=== PATIENT | male | born 1935 | race African-American/Black ===

== ENCOUNTER 2019-11-25 14:01 | Inpatient (IN) | payer MEDICARE, OTHER ==
[~2019-11-25] VITALS: Ht 182.9 cm; Wt 70.8 kg
--- NOTE | 2019-11-25 15:10 | NUR ---
[facility]. TO ER BED 7. AAOX4. NOT IN RESPS DISTRESS, BREATHING EVEN AND UNLABORED. CAME IN FOR A WORSENING WOUND ON HIS LEFT FOOT,. 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 PT WAS THEN REPORTED TO HAVE MAGGOTS NOTED THIS MORNING. PTS WOUND WAS NOTED DRAINING WITH PURULENT DISCHARGE W/ FOUL ODOR. MD WAS AT THE BEDSIDE FOR EVAL. ORDERS RECEIVED, NOTED AND CARRIED OUT. IV LINE OBTAINED ON L AC 18G, BLOOD DRAWN AND GIVEN TO WET PROCESS MILLER AT BEDSIDE.
[2019-11-25 15:19] LABS: BASOPHILS % (AUTO) 0.3 % (0.0-2.0); EOSINOPHILS % (AUTO) 1.9 % (0.0-6.0); HEMATOCRIT 34 % (39-51); HEMOGLOBIN 10.7 g/dL (13.5-17.5); LYMPHOCYTES # (AUTO) 1.3 /CMM (0.8-4.8); LYMPHOCYTES % (AUTO) 14.9 % (20.0-44.0); MEAN CORPUSCULAR HGB CONC 32 g/dl (31.0-36.0); MEAN CORPUSCULAR VOLUME 82 fL (80-96); MONOCYTES # (AUTO) 0.4 /CMM (0.1-1.30); MONOCYTES % (AUTO) 4.5 % (2.0-12.0); NEUTROPHILS % (AUTO) 78.4 % (43.0-81.0); PLATELET COUNT (AUTO) 344 /CMM (150-450); RED BLOOD CELL COUNT(AUTO) 4.11 MIL/uL (4.5-6.0)
--- NOTE | 2019-11-25 15:20 | NUR ---
XRAY AT BEDSIDE
--- NOTE | 2019-11-25 15:35 | NUR ---
pt wound cleaned by EMT . flushed with NS. noted maggots when flushing
[2019-11-25 15:45] LABS: CALCIUM, SERUM 8.8 mg/dL (8.5-10.1); CARBON DIOXIDE 28 mmol/L (21-32); CHLORIDE 100 mmol/L (98-107); CREATININE 0.8 mg/dL (0.6-1.3); GLUCOSE 224 mg/dL (74-106); POTASSIUM 4.5 mmol/L (3.5-5.1); SODIUM SERUM 135 mmol/L (136-145); UREA NITROGEN, BLOOD 13 mg/dL (7-18)
[2019-11-25 15:49] LABS: ALANINE AMINOTRANSFERASE 10 U/L (12-78); ALBUMIN 3.1 g/dL (3.4-5.0); ALKALINE PHOSPHATASE 76 U/L (46-116); ASPARTATE AMINOTRANSFERASE 12 U/L (15-37); BILIRUBIN,DIRECT 0.1 mg/dL (0.0-0.2); BILIRUBIN,TOTAL 0.3 mg/dL (0.2-1.0); TOTAL PROTEIN, SERUM 7.7 g/dL (6.4-8.2)
[2019-11-25] MEDS ORDERED: IBUP-1953 PO (15:59)
[2019-11-25] MEDS ORDERED: HYDR-4384 PO (15:59)
[2019-11-25] MEDS ORDERED: NA P133E RC (15:59)
[2019-11-25] MEDS ORDERED: DOCU-141 PO (15:59)
[2019-11-25] MEDS ORDERED: CIPR500T5 PO (15:59)
[2019-11-25] MEDS ORDERED: SENN-261 PO (15:59)
[2019-11-25] MEDS ORDERED: INSU100I26 SQ (15:59)
[2019-11-25] MEDS ORDERED: ATOR20TA PO (15:59)
[2019-11-25] MEDS ORDERED: INSU100C10 SQ (15:59)
[2019-11-25] MEDS ORDERED: MAGN296S72 PO (15:59)
[2019-11-25] MEDS ORDERED: CLOP75TA15 PO (15:59)
[2019-11-25] MEDS ORDERED: GABA300C PO (15:59)
[2019-11-25] MEDS ORDERED: BISA10SU61 RC (15:59)
[2019-11-25] MEDS ORDERED: ASPI-605 PO (15:59)
[2019-11-25] MEDS ORDERED: VANCOMYCIN 1 GM in IV D5W 250 ML IV ONE (16:00)
[2019-11-25] MEDS ORDERED: MEROPENEM 1,000 MG in IV NS 0.9% 100 ML IV ONE (16:00)
[2019-11-25] MEDS ORDERED: MEROPENEM 1 G VIAL IV ONE (17:21)
--- NOTE | 2019-11-25 18:17 | NUR ---
REPORT GIVEN TO BHANU YARBROUGH FOR GELA.
[2019-11-25] MEDS ORDERED: MAGNESIUM CITRATE 296 ML BOTTLE PO PRN ×2 (18:30→20:03)
[2019-11-25] MEDS ORDERED: IBUPROFEN 400 MG TABLET PO PRN (18:30)
[2019-11-25] MEDS ORDERED: BISACODYL SUPP (10 MG) 10 MG/SUPP.RECT SUPP.RECT RC PRN (18:30)
[2019-11-25] MEDS ORDERED: NA PHOS,M-B/NA PHOS,DI-BA 1 EA ENEMA RC PRN (18:30)
--- NOTE | 2019-11-25 18:39 | NUR ---
pt transported to unit on [facility] with emt and rn at bedside. using alcs protocol. nad noted during transport.
--- NOTE | 2019-11-25 19:02 | NUR ---
MS/RN NOTES RECEIVED REPORT FROM ELBERT TORRE RN. PATIENT CAME FROM [facility] COMPLAINED OF MAGOT IN THE WOUND PER [facility] PERSONNEL. PATIENT IN ROOM AIR SATURATION OF 99%. INITIATED VITAL SIGN BP 113/80 RR 20 TEMP 97.8 HR 93. WILL ENDORSED TO WATERPROOFER FOR ASSESSMENT AND CARE.
[2019-11-25 20:00] VITALS: BP 113/80
--- NOTE | 2019-11-25 20:00 | NUR ---
RN OPENING NOTE PT RECEIVED IN STABLE CONDITION. PT REFUSES TO PROVIDE ANY INFORMATION AND HE REFUSES TO BE TOUCHED.HE STATED "GO OUT OF THE ROOM , I DO NOT WANT TO TALK TO YOU, I WANT A MALE NURSE, CLOSE THE DOOR, DO NOT COME BACK" CHARGE NURSE GERALD MADE AWARE.
--- NOTE | 2019-11-25 21:18 | NUR ---
MS RN NOTE PAGED MD CHACON REGARDING PT REFUSING ALL CARE. REFUSING TO ANSWER THE ADMISSION QUESTIONS. STATES "I WILL DO TOMORROW MORNING, LEAVE ME ALONE AT THIS TIME. NURSE CLARISSA UNABLE TO DO WOUND ASSESSMENT AND ADMISSION QUESTIONNAIRES. WAITING FOR MD TO CALL BACK.
[2019-11-25] MEDS ORDERED: ACETAMINOPHEN 325 MG TABLET PO PRN (22:00)
[2019-11-25] MEDS ORDERED: MEROPENEM 1 G in IV NS 0.9% 100 ML IV SCH (22:00)
[2019-11-25] MEDS ORDERED: ENOXAPARIN SODIUM 40 MG/0.4 ML DISP.SYRIN SQ SCH (22:00)
[2019-11-25] MEDS ORDERED: MORPHINE SULFATE INJ 2 MG/ML DISP.SYRIN IM PRN (22:00)
[2019-11-25] MEDS: ATORVASTATIN 10 MG TABLET PO SCH (22:35)
[2019-11-25] MEDS: SENNOSIDES 8.6 MG TABLET PO SCH (22:36)
[2019-11-25] MEDS: INSULIN GLARGINE, 100 UNIT/ML CARTRIDGE SQ SCH (22:51)
[2019-11-25] MEDS: IV NS 0.9% 1,000 ML IV PRN (23:16)
[2019-11-25] MEDS: HYDROCODONE/APAP 5/325MG TABLET PO PRN (23:21)
--- NOTE | 2019-11-26 04:00 | NUR ---
RN NOTE PT REFUSED 4'O CLOCK VITALS.
[2019-11-26] MEDS ORDERED: MEROPENEM 1 G in IV NS 0.9% 100 ML IV ONE (05:30)
[2019-11-26] MEDS ORDERED: VANCOMYCIN 1 GM in IV D5W 250ml IV ONE (06:00)
[2019-11-26] MEDS ORDERED: VANCOMYCIN 1 GM VIAL ONE (06:45)
[2019-11-26] MEDS ORDERED: MEROPENEM 1 G VIAL IV ONE (06:45)
[2019-11-26 06:57] LABS: BASOPHILS % (AUTO) 0.6 % (0.0-2.0); EOSINOPHILS % (AUTO) 5.2 % (0.0-6.0); HEMATOCRIT 31 % (39-51); HEMOGLOBIN 9.9 g/dL (13.5-17.5); LYMPHOCYTES # (AUTO) 1.8 /CMM (0.8-4.8); LYMPHOCYTES % (AUTO) 28.6 % (20.0-44.0); MEAN CORPUSCULAR HGB CONC 32 g/dl (31.0-36.0); MEAN CORPUSCULAR VOLUME 81 fL (80-96); MONOCYTES # (AUTO) 0.5 /CMM (0.1-1.30); MONOCYTES % (AUTO) 7.3 % (2.0-12.0); NEUTROPHILS # (AUTO) 3.6 /CMM (1.8-8.9); NEUTROPHILS % (AUTO) 58.3 % (43.0-81.0); PLATELET COUNT (AUTO) 293 /CMM (150-450); RED BLOOD CELL COUNT(AUTO) 3.75 MIL/uL (4.5-6.0); WHITE BLOOD COUNT (AUTO) 6.2 K/uL (4.3-11.0)
[2019-11-26 07:13] LABS: CALCIUM, SERUM 8.8 mg/dL (8.5-10.1); CARBON DIOXIDE 27 mmol/L (21-32); CHLORIDE 103 mmol/L (98-107); CREATININE 0.5 mg/dL (0.6-1.3); GLUCOSE 132 mg/dL (74-106); POTASSIUM 4.2 mmol/L (3.5-5.1); SODIUM SERUM 136 mmol/L (136-145); UREA NITROGEN, BLOOD 12 mg/dL (7-18)
--- NOTE | 2019-11-26 07:20 | NUR ---
RN NOTES PM NURSE ADMINISTERED 0645 MEROPENEM .
--- NOTE | 2019-11-26 07:20 | NUR ---
RN NOTES PM NURSE ADMINISTERED 0645 VANCOMYCIN.
--- NOTE | 2019-11-26 07:30 | NUR ---
RN OPENING NOTES RECEIVED PATIENT IN BED , A/O X 3 ON ROOM AIR SAT 100%, NO S/S OF REPARATORY DISTRESS. NOTED PATIENT BEDSIDE COMMODE , LAC # 18 RUNNING NS @ 75 ML/HR. SAFETY MEASURE IN PLACE, BED LOCKED AND IN LOWEST POSITION, SIDE RAILS UP X 2 , CALL LIGHT WITHIN EASY REACH. WILL CONTINUE TO MONITOR.
[2019-11-26] MEDS ORDERED: FEE PK DOSING 1 MIN EA MC ONE (07:55)
[2019-11-26] MEDS: INSULIN LISPRO/ASPART 100 UNIT/ML CARTRIDGE SQ SCH ×3 (08:15→18:12)
[2019-11-26] MEDS ORDERED: MORPHINE SULFATE INJ 2 MG/ML DISP.SYRIN IV PRN (08:30)
[2019-11-26] MEDS: GABAPENTIN 300 MG CAPSULE PO SCH ×3 (09:08→16:30)
[2019-11-26] MEDS: PANTOPRAZOLE 40 MG VIAL IV SCH (09:08)
[2019-11-26] MEDS: ASPIRIN EC 81 MG TABLET.DR PO SCH (09:08)
[2019-11-26] MEDS: DOCUSATE SODIUM 100 MG CAPSULE PO SCH ×2 (09:08→16:30)
[2019-11-26] MEDS: CLOPIDOGREL BISULFATE 75 MG TABLET PO SCH (09:08)
--- NOTE | 2019-11-26 11:01 | NUR ---
WOUND CARE CONSULT: PT REFUSING SKIN ASSESSMENT AND WOUND PHOTOS. WILL SEE PT/REVIEW PHOTOS PT CONDITION PERMITS. SOLARIS ADMINISTRATOR AND TUTORING CLINICIAN AWARE. CURRENT BRANDI SCORE IS 18.
[2019-11-26 12:00] VITALS: BP 132/80
[2019-11-26] MEDS: GLUCERNA SHAKE 237 ML CAN PO SCH ×2 (12:54→17:21)
--- NOTE | 2019-11-26 14:42 | NUR ---
DR. CHACON SEEN PATIENT AWARE PATIENT IS DIFFICULT AND REFUSING VITALS AT TIMES AND ALSO PHOTO/TREATMENT.
[2019-11-26] MEDS: HYDROCODONE/APAP 5/325MG TABLET PO PRN (15:20)
--- NOTE | 2019-11-26 17:24 | NUR ---
RN NOTES PATIENT REMOVED IV ACCESS LAC # 18. PATIENT IS DIFFICULT AND DOES NOT WANT TO BE POKED MULTIPLE TIMES. CHARGE NURSE MADE AWARE. PER CHARGE NURSE , MIDLINE NURSE WILL COME AT 2300.
--- NOTE | 2019-11-26 18:20 | NUR ---
tried again peripheral iv 3x unsuccessful patient agreed to have midline tonite for his antibiotic per md. per [facility] nursing sup rosario coming tonite to do midline. willl endorse to shift commander.
--- NOTE | 2019-11-26 18:35 | NUR ---
RN CLOSING NOTES WILL ENDORSE PT TO PM NURSE FOR GELA. PATIENT IS IN BED , A/O X 3 ON ROOM AIR SAT 96-100%, NO S/S OF REPARATORY DISTRESS. NOTED PATIENT BEDSIDE COMMODE , PATIENT REMOVED LAC # 18 RUNNING NS @ 75 ML/HR. MULTIPLE ATTEMPTS TRIED FOR NEW IV ACCESS[facility] ORDER FOR MIDLINE NURSE TO COME IN AT 2300. PATIENT REFUSES PHOTOS TO BE TAKEN. CHARGE NURSE AND MD AWARE. SAFETY MEASURE IN PLACE, BED LOCKED AND IN LOWEST POSITION, SIDE RAILS UP X 2 , CALL LIGHT WITHIN EASY REACH.
--- NOTE | 2019-11-26 19:40 | NUR ---
RN OPENING NOTES, PATIENT LYING ON BED A/O X 3, ABLE TO VERBALIZED NEEDS AND CONCERNS , ON ROOM AIR NO S/S OF REPARATORY DISTRESS, NO IV ACESS AT THIS TIME, WILL HAVE MIDLINE PLACEMENT LATER, ALL SAFETY MEASURES IN PLACE, BED LOCKED AND IN LOWEST POSITION, SIDE RAILS UP X 2 , CALL LIGHT WITHIN REACH, WILL CONTINUE TO MONITOR CLOSELY,.
[2019-11-26 20:00] VITALS: BP 120/69
[2019-11-26] MEDS ORDERED: VANCOMYCIN 0.75 GM in IV D5W 250 ML IV SCH (20:00)
[2019-11-26] MEDS ORDERED: MEROPENEM 1 G in IV NS 0.9% 100 ML IV SCH (21:00)
[2019-11-26] MEDS: ENOXAPARIN SODIUM 40 MG/0.4 ML DISP.SYRIN SQ SCH ×2 (21:00→21:21)
[2019-11-26] MEDS: SENNOSIDES 8.6 MG TABLET PO SCH ×2 (21:16→22:00)
[2019-11-26] MEDS: ATORVASTATIN 10 MG TABLET PO SCH ×2 (21:16→22:00)
--- NOTE | 2019-11-26 21:35 | NUR ---
RN NOTES, PATIENT REFUSED NIGHT MEDICATIONS, REFUSED BLOOD SUGAR CHECK AND ADMINISTRATION OF LANTUS, EXPLAINED RISKS AND BENEFITS X3, STILL REFUSED, MD AWARE WILL CONTINUE TO MONITOR CLOSELY.
[2019-11-26] MEDS: INSULIN GLARGINE, 100 UNIT/ML CARTRIDGE SQ SCH (22:00)
--- NOTE | 2019-11-27 | NUR ---
RN NOTES, MIDLINE NURSE AT THE ROOM AT THIS TIME FOR MIDLINE INSERTION, PATIENT REFUSED, EXPLAINED RISKS AND BENEFITS AND EXPLAINED THAT HE IN ON ANTIBIOTICS AND IV FLUID, AND THE IMPORTANCE OF THESE MEDICATIONS, AND PATIENT STILL REFUSED. CHARGE NURSE AWARE. WILL INFORM MD.
--- NOTE | 2019-11-27 00:27 | NUR ---
RN NOTES, INFORMED PARTH TRANSPORTATION MECHANIC THAT PATIENT REFUSED MIDLINE INSERTION AND THAT HE IS ON ANTIBIOTICS AND IV FLUIDS, AWARE AND REPLIED THAT WE CANNOT FORCE PATIENT AND HAS RIGHT TO REFUSE, WILL CONTINUE TO MONITOR CLOSELY.
--- NOTE | 2019-11-27 04:00 | NUR ---
RN NOTES, PATIENT REFUSED VITAL SIGNS AT THIS TIME, EXPLAINED RISKS AND BENEFITS X3, STILL REFUSED. CHARGE NURSE AND MD AWARE.
--- NOTE | 2019-11-27 06:55 | NUR ---
0687 DR CHACON MADE AWARE THAT PATIENT REFUSED MIDLINE INSERTION WITH NO ORDER MADE.
--- NOTE | 2019-11-27 06:55 | NUR ---
RN CLOSING NOTES, PATIENT SLEEPING AT THIS TIME, BUR AROUSES EASILY TO VERBAL STIMULI, , ABLE TO VERBALIZED NEEDS AND CONCERNS , ON ROOM AIR NO S/S OF REPARATORY DISTRESS, NO IV ACCESS AT THIS TIME, REFUSED MIDLINE INSERTION LAST NIGHT, REFUSED MEDICATIONS, ACCUCHEK AND INSULIN, AND REFUSED VITAL SIGHS AT 0400, PARTH AND CHARGE NURSE AWARE, OTHERWISE NO SIGNIFICANT CHANGE IN CONDITION DURING THE NIGHT, ALL SAFETY MEASURES IN PLACE, BED LOCKED AND IN LOWEST POSITION, SIDE RAILS UP X 2 , CALL LIGHT WITHIN REACH, WILL ENDORSE CONTINUITY OF CARE TO ONCOMING NURSE.
--- NOTE | 2019-11-27 07:25 | NUR ---
WOUND CARE: PT CONTINUES TO REFUSED WOUND ASSESSMENT AND PHOTOS. DR CHACON AWARE PER SOLID STATE TESTER. WILL SEE PT PT CONDITION PERMITS.
--- NOTE | 2019-11-27 08:00 | NUR ---
JONH RN OPENING NOTES RECEIVED PT IN BED. PT IS ON RA SATURATING IN 97%. MED SURGE PT . ALERT AND ORIENTED X 3. TOOK PHOTO OF LEFT FOOT/ TOE . NO IV LINE. MIDLINE NURSE COMING @15:00.SAFETY MEASUREMENTS ARE IMPLEMENTED. BED IS IN THE LOWEST POSITION LOCKED AND BED RAILS ARE UP X2.CALL LIGHT WITHIN REACH. WILL CONTINUE TO MONITOR.
[2019-11-27] MEDS: DOCUSATE SODIUM 100 MG CAPSULE PO SCH ×2 (08:43→17:00)
[2019-11-27] MEDS: MULTIVITAMINS,THERAGRAN 1 UDTAB TABLET PO SCH (08:44)
[2019-11-27] MEDS: ASPIRIN EC 81 MG TABLET.DR PO SCH (08:44)
[2019-11-27] MEDS: GABAPENTIN 300 MG CAPSULE PO SCH ×3 (08:44→17:59)
[2019-11-27] MEDS: CLOPIDOGREL BISULFATE 75 MG TABLET PO SCH (08:44)
[2019-11-27] MEDS: PANTOPRAZOLE 40 MG VIAL IV SCH (09:00)
[2019-11-27] MEDS: GLUCERNA SHAKE 237 ML CAN PO SCH ×3 (09:03→17:27)
[2019-11-27] MEDS: INSULIN LISPRO/ASPART 100 UNIT/ML CARTRIDGE SQ SCH ×3 (09:03→18:20)
--- NOTE | 2019-11-27 10:15 | NUR ---
WOUND CARE: PT ALLOWED PHOTOS. RECOMMEND DPM CONSULT. DR WOLFE NOTIFIED OF CONSULT REQUEST. DEFER TO DPM FOR WOUND TREATMENT PLAN. MD IN AGREEMENT WITH PLAN OF CARE.
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
[2019-11-27 12:00] VITALS: BP 144/78
[2019-11-27] MEDS ORDERED: MAGNESIUM CITRATE 296 ML BOTTLE PO PRN (12:00)
[2019-11-27] MEDS ORDERED: HYDROGEN PEROXIDE 480 ML BOTTLE TP PRN (13:00)
--- NOTE | 2019-11-27 14:58 | NUR ---
patient refusing blood draw dr. whiting notified.
[2019-11-27] MEDS: HYDROCODONE/APAP 5/325MG TABLET PO PRN (15:28)
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
[2019-11-27] MEDS ORDERED: VANCOMYCIN 0.75 GM in IV D5W 250 ML IV SCH (18:00)
--- NOTE | 2019-11-27 19:40 | NUR ---
RN NOTE RECEIVED PT IN BED, AO X4, NO S/SX OF ACUTE DISTRESS AT THIS TIME. NO SOB NOTED. PATIENT'S BREATHING IS EVEN AND UNLABORED, SATURATING >95% ON ROOM AIR. NOTED IV SITE ON GARY MIDLINE; PATENT AND FLUSHING WELL,NO S/S OF INFECTION NOTED. PATIENT IS AMBULATORY, NEEDS MINIMAL ASSISTANCE. NOTED LEFT FOOT/L GREAT TOE WOUND, WITH WOUND DRESSING MODERATELY SATURATED. SAFETY MEASURES IMPLEMENTED PER PROTOCOL. HEAD OF BED ELEVATED. BED IS LOCKED, IN LOWEST POSITION AND SIDE RAILS UP. CALL LIGHT WITHIN REACH OF THE PATIENT. WILL CONTINUE TO MONITOR AND REASSESS FOR ANY CHANGES.
[2019-11-27 20:00] VITALS: BP 100/62
[2019-11-27] MEDS ORDERED: NA PHOS,M-B/NA PHOS,DI-BA 1 EA ENEMA RC PRN (20:00)
[2019-11-27] MEDS: MEROPENEM 1 G in IV NS 0.9% 100 ML IV SCH (20:52)
[2019-11-27] MEDS: SENNOSIDES 8.6 MG TABLET PO SCH ×2 (21:00→22:00)
[2019-11-27] MEDS: ATORVASTATIN 10 MG TABLET PO SCH ×2 (21:00→22:00)
[2019-11-27] MEDS: ENOXAPARIN SODIUM 40 MG/0.4 ML DISP.SYRIN SQ SCH (21:00)
[2019-11-27] MEDS: INSULIN GLARGINE, 100 UNIT/ML CARTRIDGE SQ SCH (21:14)
--- NOTE | 2019-11-27 21:30 | NUR ---
RN NOTE PATIENT REFUSED SCHEDULED MEDICATIONS DESPITRE EXPLAINING TO HIM THE IMPORTANCE OF FOLLOWING THE MEDICATION REGIMEN. SAID HE WANTED TO SLEEP FOR NOW. X RAY DEVELOPING MACHINE OPERATOR MADE AWARE.
--- NOTE | 2019-11-28 00:35 | NUR ---
RN NOTE PATIENT STATED HE DOESNT WANT TO BE BOTHERED FOR NOW, HE WANTS TO REST. STILL REFUSED SCHEDULED MEDICATIONS. GLASS CUTTING MACHINE FEEDER MADE AWARE. Addendum: 11/28/19 at 0052 by HUSSEIN CERVANTES RN PATIENT REFUSED PM MEDICATIONS INCLUDING VANCO TROUGH SUPPOSEDLY SCHEDULED 11/27/[address] LAURITA COLLINS MADE AWARE. ORDERED TO GIVE NEXT DOSE OF VANCOMYCIN SCHEDULED AT 0600 IF PATIENT AGREES.
--- NOTE | 2019-11-28 03:10 | NUR ---
RN NOTE NOTED PATIENT HAD BOWEL MOVEMENT, BUT REFUSED TO BE CLEANED AND CHANGED. SAID HE WANTED A LADY TO TAKECARE OF HER, SPECIFICALLY MARILYNN RN, AND WILL WAIT UNTIL MORNING.
--- NOTE | 2019-11-28 04:30 | NUR ---
RN NOTE PATIENT REFUSED VITAL SIGNS TO BE TAKEN AT 11/270. Addendum: 11/28/19 at 0431 by HUSSEIN CERVANTES RN Amended: Links added.
[2019-11-28] MEDS: GLUCERNA SHAKE 237 ML CAN PO SCH ×3 (08:00→16:49)
--- NOTE | 2019-11-28 08:00 | NUR ---
MS RN OPENING NOTES Received Patient resting in bed. A/O x 4. VS stable with no acute distress. Breathing even and unlabored on room air with no respiratory distress. Denies pain. No signs and symptoms of pain. GARY Midline pulled out. Patient in stable condition. Safety precautions in place. Bed locked and set to lowest position with side rails x 2 up. All needs rendered at this time. Call light within reach. Will continue to monitor.
--- NOTE | 2019-11-28 08:30 | NUR ---
MS RN NOTES Inserted 22g PIV on LFA clean, intact, patent and flushing well with NS infusing at 75ml/hr. Patient tolerated well.
[2019-11-28] MEDS: INSULIN LISPRO/ASPART 100 UNIT/ML CARTRIDGE SQ SCH ×3 (08:42→17:18)
[2019-11-28] MEDS: MULTIVITAMINS,THERAGRAN 1 UDTAB TABLET PO SCH (08:48)
[2019-11-28] MEDS: GABAPENTIN 300 MG CAPSULE PO SCH ×4 (08:48→16:49)
[2019-11-28] MEDS: CLOPIDOGREL BISULFATE 75 MG TABLET PO SCH (08:48)
[2019-11-28] MEDS: ASPIRIN EC 81 MG TABLET.DR PO SCH (08:48)
[2019-11-28] MEDS: DOCUSATE SODIUM 100 MG CAPSULE PO SCH ×2 (08:48→16:49)
[2019-11-28] MEDS: PANTOPRAZOLE 40 MG VIAL IV SCH (08:48)
[2019-11-28 08:57] LABS: CALCIUM, SERUM 8.9 mg/dL (8.5-10.1); CREATININE 0.9 mg/dL (0.6-1.3); POTASSIUM 4.1 mmol/L (3.5-5.1)
[2019-11-28] MEDS: IV NS 0.9% 1,000 ML IV PRN ×2 (09:43→20:48)
[2019-11-28] MEDS: MEROPENEM 1 G in IV NS 0.9% 100 ML IV SCH ×2 (09:43→20:57)
[2019-11-28] MEDS: CLINDAMYCIN 600 MG in IV D5W 50 ML IV SCH ×2 (10:45→16:48)
[2019-11-28 12:20] VITALS: BP 113/70
--- NOTE | 2019-11-28 13:59 | NUR ---
Insurance Agency Manager was contacted by Kristel Bernal to forward the [facility] report [id number] regarding [facility] Insurance Agency Manager to [facility] via fax . This SW completed this task.
--- NOTE | 2019-11-28 18:43 | NUR ---
MS RN CLOSING NOTES Patient resting in bed. A/O x 4. VS stable with no acute distress. Breathing even and unlabored on room air with no respiratory distress. Denies pain. No signs and symptoms of pain. 22g PIV on LFA clean, intact, patent and flushing well. Safety precautions in place. Bed locked and set to lowest position with side rails x 2 up. All needs rendered at this time. Call light within reach. Will endorse plan of care to oncoming shift.
[2019-11-28 20:00] VITALS: BP 117/66
[2019-11-28] MEDS: ATORVASTATIN 10 MG TABLET PO SCH (20:58)
[2019-11-28] MEDS: SENNOSIDES 8.6 MG TABLET PO SCH (20:58)
[2019-11-28] MEDS: HYDROCODONE/APAP 5/325MG TABLET PO PRN (20:59)
[2019-11-28] MEDS: ENOXAPARIN SODIUM 40 MG/0.4 ML DISP.SYRIN SQ SCH (21:01)
[2019-11-28] MEDS: INSULIN GLARGINE, 100 UNIT/ML CARTRIDGE SQ SCH (21:50)
[2019-11-29] MEDS: CLINDAMYCIN 600 MG in IV D5W 50 ML IV SCH ×2 (01:00→01:28)
[2019-11-29 04:00] VITALS: BP 115/71
--- NOTE | 2019-11-29 04:43 | NUR ---
RN notes Received pateient awake in bed with no distress noted. Alert and oriented, verbally able to communicate needs. Complaint of left foot pain, [place] given x 1. Patient refused IV fluid hydration and refused IV antibiotic. Also refused to have wound care. Explained risk and benefits x 3 but still refused infusion. Needs attended, kept clean and dry. Will continue to monitor.
[2019-11-29] MEDS: IV NS 0.9% 1,000 ML IV PRN (06:09)
[2019-11-29] MEDS: INSULIN LISPRO/ASPART 100 UNIT/ML CARTRIDGE SQ SCH ×2 (07:30→13:00)
--- NOTE | 2019-11-29 07:32 | NUR ---
CALCULATION CLERK NOTES PATIENT RECEIVED IN BED. ALERT AND ORIENTED X 3. PATIENT ON ROOM AIR WITH NO SIGNS OF RESPIRATORY DISTRESS AT THIS TIME. NO IV ACCESS DUE TO PATIENT REMOVING IT, EXPLAINED BENEFITS, PATIENT STILL REFUSED. PATIENT PRESENTS NO PAIN OR DISCOMFORT AT THIS TIME. SAFETY PRECAUTIONS IMPLEMENTED WITH BED LOCKED, BED IN THE LOWEST POSITION, BILATERAL SIDE RAILS UP, AND CALL LIGHT WITHIN EASY REACH OF THE PATIENT. WILL CONTINUE TO MONITOR PATIENT.
[2019-11-29] MEDS: GLUCERNA SHAKE 237 ML CAN PO SCH ×2 (07:46→12:54)
--- NOTE | 2019-11-29 07:48 | NUR ---
RN NOTES PATIENT BLOOD SUGAR 139, PATIENT REFUSING 4 UNITS OF INSULIN LISPRO/ASPART. EDUCATED THE PATIENT THE RISKS AND BENEFITS OF INSULIN. PATIENT KEPT REFUSING AFTER MULTIPLE ATTEMPTS. WILL CONTINUE TO MONITOR PATIENT.
[2019-11-29] MEDS: MULTIVITAMINS,THERAGRAN 1 UDTAB TABLET PO SCH (08:13)
[2019-11-29] MEDS: GABAPENTIN 300 MG CAPSULE PO SCH ×2 (08:13→13:00)
[2019-11-29] MEDS: CLOPIDOGREL BISULFATE 75 MG TABLET PO SCH (08:13)
[2019-11-29] MEDS: DOCUSATE SODIUM 100 MG CAPSULE PO SCH (08:13)
[2019-11-29] MEDS: ASPIRIN EC 81 MG TABLET.DR PO SCH (08:13)
[2019-11-29] MEDS ORDERED: PANTOPRAZOLE 40 MG TABLET.DR PO SCH (09:19)
[2019-11-29 11:05] LABS: CALCIUM, SERUM 8.5 mg/dL (8.5-10.1); CARBON DIOXIDE 32 mmol/L (21-32); CHLORIDE 102 mmol/L (98-107); CREATININE 0.8 mg/dL (0.6-1.3); GLUCOSE 190 mg/dL (74-106); POTASSIUM 4.3 mmol/L (3.5-5.1); SODIUM SERUM 137 mmol/L (136-145); UREA NITROGEN, BLOOD 13 mg/dL (7-18)
[2019-11-29] MEDS ORDERED: CLINDAMYCIN HCL 150 MG CAPSULE PO SCH (12:00)
--- NOTE | 2019-11-29 12:45 | NUR ---
RN NOTES INFORMED DR. CHACON ABOUT PATIENT'S PRESENTING WITH BILATERAL DEEP VENOUS THROMBOSIS. NO NEW ORDERS AT THIS TIME. WILL CONTINUE WITH PLAN OF CARE AND CONTINUE TO MONITOR PATIENT.
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
[2019-11-29] MEDS: HYDROCODONE/APAP 5/325MG TABLET PO PRN (12:59)
--- NOTE | 2019-11-29 14:00 | NUR ---
RN NOTES CALLED FOR REPORT SPOKE WITH BHANU FRANCOIS .
--- NOTE | 2019-11-29 15:35 | NUR ---
DISCHARGE NOTES PATIENT AWAKE, ALERT AND ORIENTED. MEDICALLY CLEARED AND STABLE FOR DISCHARGE BY MD. ON ROOM AIR WITH NO SIGNS OF RESPIRATORY DISTRESS, NO SIGNS SOB NOTED, AND WITH EVEN NON-LABORED BREATHING. PATIENT REFUSED SKIN ASSESSMENT TO BE DONE. PATIENT ACCOUNTED FOR ALL OF HIS BELONGINGS. REMOVED ID BAND FROM PATIENT. NO IV ACCESS ON PATIENT. PROVIDED EDUCATION TO PATIENT ON EXIT CARE AND TO FOLLOW UP WITH VASCULAR DR RECOMMENDED BY PEDIATRY. PATIENT LEFT UNIT VIA GURNEY WITH EMT.
--- NOTE | 2019-12-05 16:30 | NUR ---
10am SW received a voicemail from Parviz Flores call . This SW returned Parviz Flores call . Parviz is an internal affairs investigator with the [facility] regarding the [employer] report regarding [facility]. Parviz asked this SW to confirm the patients demographics including date of and correct spelling of the patients name. Parviz asked this SW to provide the phone number to [facility], . Parviz stated he will move forward with the investigation and will reach out to this SW if he needs anything else. This SW to remain available during this investigation regarding the patient.
--- NOTE | 2019-12-10 16:11 | NUR ---
10:20am: This SW received a call from Kristel Bernal from [facility]. Kristel wanted to confirm new placement of this patient. This SW provided the new placement information for this patient at [facility] [phone], [address] [place] [address] . This SW to remain available during the ongoing investigation.
== END 2019-11-29 15:35 | DRG 564 ==
LOC: EDBD 14:05 → ER 14:05 → MED 18:31 → MEDSG1 18:44 → MEDSG2 11-29 10:54
PROVIDERS: ADMIT Legal Medicine; ATTEND Legal Medicine
PROC: 05HA33Z Insertion of Infusion Device into Left Brachial Vein, Percutaneous Approach (ICD-10-PCS; principal; 2019-11-29)
DX: T87.44 Infection of amputation stump, left lower extremity (principal); A41.9 Sepsis, unspecified organism; J98.11 Atelectasis; M86.9 Osteomyelitis, unspecified; E11.69 Type 2 diabetes mellitus with other specified complication; E11.42 Type 2 diabetes mellitus with diabetic polyneuropathy; I25.10 Atherosclerotic heart disease of native coronary artery without angina pectoris; Z79.4 Long term (current) use of insulin; E78.5 Hyperlipidemia, unspecified; E11.65 Type 2 diabetes mellitus with hyperglycemia; E11.621 Type 2 diabetes mellitus with foot ulcer; E11.22 Type 2 diabetes mellitus with diabetic chronic kidney disease; I12.9 Hypertensive chronic kidney disease with stage 1 through stage 4 chronic kidney disease, or unspecified chronic kidney disease; E11.628 Type 2 diabetes mellitus with other skin complications; L97.529 Non-pressure chronic ulcer of other part of left foot with unspecified severity; N18.9 Chronic kidney disease, unspecified; Z51.5 Encounter for palliative care; Z91.19 Patient's noncompliance with other medical treatment and regimen; Z79.82 Long term (current) use of aspirin; Z79.02 Long term (current) use of antithrombotics/antiplatelets; Z79.899 Other long term (current) drug therapy; F41.9 Anxiety disorder, unspecified; F32.9 Major depressive disorder, single episode, unspecified; Y83.5 Amputation of limb(s) as the cause of abnormal reaction of the patient, or of later complication, without mention of misadventure at the time of the procedure; Y92.129 Unspecified place in nursing home as the place of occurrence of the external cause
CPT/HCPCS: 36415; 71045-TC; 73630-TC; 80048-TC; 80076-TC; 80202-TC; 82962-TC; 83605-TC; 84484-TC; 85025-TC; 85652-TC; 85730-TC; 87040-TC; 87070-TC; 87081-TC; 87186-TC; 93970-TC; A4217; A6253; A6403; A6407; C9113; G0378; J1650; J1815; J2185; J2270; J3370; J3490; J7030; J7060; U0003-CS